=== PATIENT | female | born 1980 | race Caucasian/White ===

== ENCOUNTER 2016-12-27 09:06 | Emergency (ER) | payer MEDICARE, MEDICAID ==
[~2016-12-27 09:06] MED LIST: ASA CHILDREN'S81 MG PO; BOTOX100 UNITS SQ; BUTALB-ACETAMI1 EAC1 PO; CARAFATE DPS1 GM PO; CARVEDILOL6.25 MG PO; CHANTIX1 MG PO; CLARITIN10 M2 PO; FLEXERIL-DPS10 MG PO; FOLIC ACID1 MG PO; HYDROCODON-ACE1 EAC4 PO; LAMOTRIGINE ER300 MG PO; LEVOTHYROXINE100 MCG PO; MAG-OX400 MG PO; MELATONIN5 M2 PO; MELOXICAM7.5 MG PO; MIRALAX DPS17 GM PO; MONTELUKAST SOD10 MG PO; OYSCO 500+D TA1 EACH PO; PRISTIQ ER100 MG PO; PROAIR HFA8.5 GM IH; REGLAN-DPS10 MG PO; REQUIP DPS0.5 MG PO; STRESS FORMULA PO; THERAPEUTIC M1 EAC1 PO; THORAZINE-DPS25 MG PO; TOPIRAMATE ER200 MG PO; TOPROL XL DPS100 MG PO; VITAMIN B COMP1 EACH PO; VITAMIN B-1250 MCG PO; VITAMIN D35000 UNIT PO
== END 2016-12-27 09:55 | disposition home or self-care (01) ==
DX: G40.909 Epilepsy, unspecified, not intractable, without status epilepticus (principal); Z98.890 Other specified postprocedural states; Z79.899 Other long term (current) drug therapy

== ENCOUNTER → 2017-01-10 | Outpatient (CLI) | payer MEDICARE, MEDICAID | END | disposition home or self-care (01) | LOC: RAD.S 09:10 | DX: Z12.31 Encounter for screening mammogram for malignant neoplasm of breast (principal); R92.0 Mammographic microcalcification found on diagnostic imaging of breast ==

== ENCOUNTER → 2017-01-14 | Outpatient (CLI) | payer MEDICARE, MEDICAID | END | disposition home or self-care (01) | LOC: RAD.S 01-11 07:22 | DX: R92.0 Mammographic microcalcification found on diagnostic imaging of breast (principal); N60.01 Solitary cyst of right breast ==

== ENCOUNTER 2017-01-21 22:28 | Emergency (ER) | payer MEDICARE, MEDICAID ==
--- NOTE | 2017-01-30 16:38 | ER ---
ADMIT: 01/21/2017 RM/LOC: ER [facility] MR#: [id number] [address] [id number] [place] [address] Emergency Room Report SEX: F AGE: 36 : 1980 DATE: 01/21/2017 ADDENDUM: This patient comes into the ER because she had a breast biopsy done today and she is having bleeding and they told her she was not to have any bleeding. On physical exam, she does have a small puncture wound on the right breast that has some Steri-Strips placed. There was some oozing around the Steri-Strips. It is a mild amount of bleeding. There is no excessive redness or swelling and does not look like there is an infection. It was redressed by the nurse. We will have her keep her appointment with her doctors and follow up with them as needed. Please see my T-sheet. REJI Bass / Deyvi Haider MD / brian JOB #: [id number] CC: Deyvi Haider MD, Attending Physician Magno Pace MD, Family Physician
== END 2017-01-21 23:58 | disposition home or self-care (01) ==
LOC: ER 22:28
DX: L76.22 Postprocedural hemorrhage of skin and subcutaneous tissue following other procedure (principal); Z79.899 Other long term (current) drug therapy

== ENCOUNTER → 2017-01-21 | Outpatient (CLI) | payer MEDICARE, MEDICAID | END | disposition home or self-care (01) | LOC: RAD.S 10:07 | PROC: 0HBT3ZX Excision of Right Breast, Percutaneous Approach, Diagnostic (ICD-10-PCS; principal; 2017-01-21) | DX: D05.12 Intraductal carcinoma in situ of left breast (principal); R92.0 Mammographic microcalcification found on diagnostic imaging of breast; N60.11 Diffuse cystic mastopathy of right breast ==